=== PATIENT | male | born 1955 | race Caucasian/White ===

== ENCOUNTER 2019-02-27 20:30 | Outpatient (CLI) | payer BC | END 2019-02-27 20:31 | disposition home or self-care (01) | LOC: SLEEPLAB 20:30 | PROVIDERS: ATTEND Family Medicine | DX: G47.33 Obstructive sleep apnea (adult) (pediatric) (principal); R06.83 Snoring; R53.83 Other fatigue; E66.9 Obesity, unspecified; I10 Essential (primary) hypertension | CPT/HCPCS: 95810 ==

== ENCOUNTER 2019-07-21 19:30 | Outpatient (CLI) | payer BC | END 2019-07-21 19:31 | disposition home or self-care (01) | LOC: SLEEPLAB 19:30 | PROVIDERS: ATTEND Family Medicine | DX: G47.33 Obstructive sleep apnea (adult) (pediatric) (principal); R06.83 Snoring; R53.83 Other fatigue; E66.9 Obesity, unspecified; I10 Essential (primary) hypertension | CPT/HCPCS: 95811 ==